=== PATIENT | female | born 1975 | race Caucasian/White ===

== ENCOUNTER → 2017-07-30 | Outpatient (CLI) | payer OTHER | LOC: BMCIMAGING 10:23 | PROVIDERS: ATTEND Obstetrics & Gynecology | DX: Z12.39 Encounter for other screening for malignant neoplasm of breast (principal); N63.10 Unspecified lump in the right breast, unspecified quadrant | CPT/HCPCS: G0204 ==

== ENCOUNTER → 2017-09-07 | Outpatient (CLI) | payer OTHER | LOC: BMCIMAGING 10:27 | PROVIDERS: ATTEND Obstetrics & Gynecology | DX: Z13.820 Encounter for screening for osteoporosis (principal); M85.89 Other specified disorders of bone density and structure, multiple sites ==

== ENCOUNTER → 2017-10-15 | Outpatient (CLI) | payer OTHER | LOC: CIMAGING 08:56 | PROVIDERS: ATTEND Internal Medicine Gastroenterology | DX: R10.13 Epigastric pain (principal) | CPT/HCPCS: 76705-PO ==

== ENCOUNTER → 2018-08-10 | Outpatient (CLI) | payer OTHER | LOC: FIMAGING 14:23 | PROVIDERS: ATTEND Obstetrics & Gynecology | DX: N63.20 Unspecified lump in the left breast, unspecified quadrant (principal); N63.10 Unspecified lump in the right breast, unspecified quadrant ==